=== PATIENT | female | born 1965 | race African-American/Black ===

== ENCOUNTER 2016-06-14 15:16 | Emergency (ER) | payer MEDICAID, OTHER ==
[2016-06-14 15:45] LABS: Bilirubin Negative (Negative); Blood, Urine Trace (Negative); Clarity Clear (Clear); Glucose, Urine (Dipstick) Negative (Negative); Leukocyte Trace (Negative); Nitrite Negative (Negative); Protein, Urine (Dipstick) Negative (Neg-Trace); Urobilinogen 0.2 mg/dL (0.2-1.0)
[2016-06-14 15:54] LABS: Bacteria/HPF Rare-Few HPF (None Seen); RBC/HPF 0-3 HPF (0-3); WBC/HPF 0-3 HPF (0-3)
== END 2016-06-14 16:15 | disposition home or self-care (01) ==
LOC: MADERS 15:16
DX: R30.0 Dysuria (principal); I10 Essential (primary) hypertension; E78.5 Hyperlipidemia, unspecified; E78.00 Pure hypercholesterolemia, unspecified; J45.909 Unspecified asthma, uncomplicated; Z87.891 Personal history of nicotine dependence
CPT/HCPCS: 81003; 81015; 87077; 87086; 99283

== ENCOUNTER 2016-08-06 11:23 | Emergency (ER) | payer OTHER ==
[2016-08-06] MEDS ORDERED: HYDROcodone/Acetaminophen 10/325 mg Tablet ONE (12:55)
[2016-08-06] MEDS ORDERED: Naproxen 500 MG TAB ONE (12:55)
[2016-08-06] MEDS ORDERED: AMOXicillin 250 MG CAP ONE (12:55)
[2016-08-06] MEDS ORDERED: Benzonatate 100 MG CAP ONE (12:55)
== END 2016-08-06 13:11 | disposition home or self-care (01) ==
LOC: MADERS 11:23
DX: J20.9 Acute bronchitis, unspecified (principal); M77.9 Enthesopathy, unspecified; I10 Essential (primary) hypertension; J45.909 Unspecified asthma, uncomplicated; E78.5 Hyperlipidemia, unspecified; E78.00 Pure hypercholesterolemia, unspecified; Z87.891 Personal history of nicotine dependence; Z79.899 Other long term (current) drug therapy
CPT/HCPCS: 99283

== ENCOUNTER 2017-03-11 17:55 | Emergency (ER) | payer OTHER ==
[2017-03-11 18:58] LABS: ALT (SGPT) 12 U/L (8-55); AST (SGOT) 14 U/L (5-34); Albumin 3.6 g/dL (3.5-5.0); Alkaline Phosphatase 65 U/L (40-150); Anion Gap 14 mmol/L (10-20); BUN (Urea Nitrogen) 14 mg/dL (7.0-18.7); Bilirubin, Total Less than 0.3 mg/dL (0.2-1.2); CK (CPK) 139 U/L (29-168); Calc. Creatinine Clearance 0 mL/min (70-130); Calcium 9.3 mg/dL (7.8-10.44); Carbon Dioxide 26 mmol/L (22-29); Chloride 101 mmol/L (98-107); Estimated GFR-MDRD 84; Globulin 5.2 g/dL (2.4-3.5); Glucose 93 mg/dL (70-105); Potassium 3.8 mmol/L (3.5-5.1); Protein, Total 8.8 g/dL (6.0-8.3); Sodium 137 mmol/L (136-145)
[2017-03-11 19:02] LABS: Eosinophils 2 % (0-10); Hemoglobin 9.6 g/dL (12.0-16.0); Lymphocytes 23 % (21-51); MDiff Complete? YES; Mean Corpuscular HGB CONC 31.7 g/dL (32.0-36.0); Mean Corpuscular Hemoglobin 25.4 pg (27.0-31.0); Mean Platelet Volume 7.6 fL (7.4-10.4); Monocytes 5 % (0-10); Neutrophil 70 % (42-75); PLT Morphology Comment Appears Adequate; Platelet Count 307 thou/uL (130-400); RBC Distribution Width 15.5 % (11.5-14.5); Red Blood Cell (RBC) Count 3.78 mill/uL (4.20-5.40)
== END 2017-03-11 19:38 | disposition home or self-care (01) ==
LOC: MADERS 17:55
DX: D50.9 Iron deficiency anemia, unspecified (principal); E78.5 Hyperlipidemia, unspecified; I10 Essential (primary) hypertension; J45.909 Unspecified asthma, uncomplicated; F17.210 Nicotine dependence, cigarettes, uncomplicated; Z79.899 Other long term (current) drug therapy
CPT/HCPCS: 36415; 80053; 82550; 85025; 99283

== ENCOUNTER 2017-04-08 09:33 | Outpatient (CLI) | payer OTHER ==
--- NOTE | 2017-04-08 11:36 | RAD ---
THREE VIEWS OF THE LEFT WRIST: INDICATION: Pain and swelling. COMPARISON: None. FINDINGS: There is soft tissue swelling surrounding the left wrist. No definite acute fracture or subluxation is grossly evident. There is slight widening of the scapholunate interval which can be seen with sca pholunate insufficiency. IMPRESSION: 1. No acute osseous abnormality. 2. Soft tissue swelling of the left wrist. 3. Slight widening of the scapholunate interval can be seen with scapholunate insufficiency. A foll owup left wrist MRI, preferably with intraarticular contrast is recommended for further evaluation. POS: [facility]
--- NOTE | 2017-04-08 11:47 | RAD ---
2 VIEW LEFT FOREARM: Date: 04/08/17 INDICATION: Pain, edema. FINDINGS: There is no fracture or dislocation of left forearm. No radiopaque foreign body is visualized. IMPRESSION: No acute osseous abnormality of left forearm. POS: [facility]
== END 2017-04-08 09:34 | disposition home or self-care (01) ==
LOC: MADRAD 09:33
PROVIDERS: ATTEND Family Medicine
DX: M79.632 Pain in left forearm (principal); M25.432 Effusion, left wrist

== ENCOUNTER 2017-09-20 21:07 | Emergency (ER) | payer OTHER ==
[2017-09-20] MEDS ORDERED: Fentanyl 100 MCG/2 ML VIAL ONE (21:31)
== END 2017-09-20 21:53 | disposition home or self-care (01) ==
LOC: MADERS 21:07
DX: M62.838 Other muscle spasm (principal); E78.5 Hyperlipidemia, unspecified; I10 Essential (primary) hypertension; J45.909 Unspecified asthma, uncomplicated; F32.9 Major depressive disorder, single episode, unspecified; Z87.891 Personal history of nicotine dependence; Z79.899 Other long term (current) drug therapy
CPT/HCPCS: 96372; J3010

== ENCOUNTER 2018-06-26 17:52 | Emergency (ER) | payer OTHER ==
[2018-06-26] MEDS ORDERED: predniSONE 20 MG TAB ONE (18:49)
== END 2018-06-26 18:52 | disposition home or self-care (01) ==
LOC: MADERS 17:52
DX: M19.90 Unspecified osteoarthritis, unspecified site (principal); E78.5 Hyperlipidemia, unspecified; I10 Essential (primary) hypertension; J45.909 Unspecified asthma, uncomplicated; F32.9 Major depressive disorder, single episode, unspecified; Z87.891 Personal history of nicotine dependence; Z79.51 Long term (current) use of inhaled steroids; Z79.899 Other long term (current) drug therapy
CPT/HCPCS: 99283

== ENCOUNTER 2019-07-01 15:21 | Emergency (ER) | payer OTHER ==
[2019-07-01] MEDS ORDERED: Aspirin Chewable 81 MG TAB ONE (15:44)
--- NOTE | 2019-07-01 15:51 | RAD ---
Portable chest: HISTORY: Chest pain COMPARISON: 2016 FINDINGS: Lung rocha are clear. Heart and mediastinum appear unremarkable. Vascularity is normal. Visualized osseous structures unremarkable. IMPRESSION: No acute finding
[2019-07-01 15:53] LABS: #Basophils 0.1 thou/uL (0.0-0.2); #Eosinphils 0.2 thou/uL (0.0-0.7); #Lymphocytes 2.7 thou/uL (1.20-3.40); #Monocytes 0.3 thou/uL (0.11-0.59); #Neutrophils 3.3 thou/uL (1.40-6.50); %Basophils 1.3 % (0.0-1.0); %Eosinophils 2.6 % (0.0-10.0); %Lymphocytes 41.2 % (21.0-51.0); %Monocytes 4.9 % (0.0-10.0); %Neutrophils 49.9 % (42.0-75.0); Hemoglobin 11.2 g/dL (12.0-16.0); Mean Corpuscular HGB CONC 30.4 g/dL (32.0-36.0); Mean Corpuscular Hemoglobin 26.4 pg (27.0-31.0); Mean Corpuscular Volume 86.8 fL (78.0-98.0); Mean Platelet Volume 8.7 fL (7.4-10.4); Platelet Count 284 thou/uL (130-400); RBC Distribution Width 12.2 % (11.5-14.5); Red Blood Cell (RBC) Count 4.24 mill/uL (4.20-5.40); White Blood Cell (WBC) Count 6.6 thou/uL (4.8-10.8)
[2019-07-01 16:07] LABS: ALT (SGPT) 18 U/L (8-55); AST (SGOT) 26 U/L (5-34); Albumin 4.2 g/dL (3.5-5.0); Alkaline Phosphatase 74 U/L (40-110); Anion Gap 15 mmol/L (10-20); BUN (Urea Nitrogen) 12 mg/dL (9.8-20.1); Bilirubin, Total 0.2 mg/dL (0.2-1.2); Calc. Creatinine Clearance 0 mL/min (70-130); Calcium 9.6 mg/dL (7.8-10.44); Carbon Dioxide 24 mmol/L (22-29); Chloride 104 mmol/L (98-107); Estimated GFR-MDRD 88; Globulin 5.4 g/dL (2.4-3.5); Glucose 82 mg/dL (70-105); Potassium 3.4 mmol/L (3.5-5.1); Protein, Total 9.6 g/dL (6.0-8.3); Sodium 140 mmol/L (136-145)
== END 2019-07-01 19:40 | disposition home or self-care (01) ==
LOC: MADERS 15:21
DX: R07.9 Chest pain, unspecified (principal); I10 Essential (primary) hypertension; J45.909 Unspecified asthma, uncomplicated; F32.9 Major depressive disorder, single episode, unspecified; Z87.891 Personal history of nicotine dependence; Z79.51 Long term (current) use of inhaled steroids; Z79.899 Other long term (current) drug therapy
CPT/HCPCS: 36415; 71045; 80053; 84484; 85025; 93005

== ENCOUNTER 2020-11-21 17:20 | Emergency (ER) | payer OTHER ==
[2020-11-21 18:06] LABS: Bilirubin Negative (Negative); Blood, Urine Trace (Negative); Glucose, Urine (Dipstick) Negative (Negative); Ketone, Urine Negative (Negative); Leukocyte Trace (Negative); Nitrite Negative (Negative); Protein, Urine (Dipstick) Negative (Neg-Trace); Specific Gravity, Urine 1.015 (1.005-1.030); Urobilinogen 0.2 mg/dL (Less than 2); pH, Urine 5.5 (5.0-9.0)
[2020-11-21 18:09] LABS: Clarity Hazy (Clear)
[2020-11-21 18:11] LABS: Bacteria/HPF 1+ HPF (None Seen); RBC/HPF 0-3 HPF (0-3); WBC/HPF 0-3 HPF (0-3)
[2020-11-21] MEDS ORDERED: Cephalexin 500 MG CAP ONE (18:59)
[2020-11-21 20:28] LABS: #Basophils 0.1 thou/uL (0.0-0.2); #Eosinphils 0.2 thou/uL (0.0-0.7); #Lymphocytes 2.5 thou/uL (1.20-3.40); #Monocytes 0.5 thou/uL (0.11-0.59); #Neutrophils 4.3 thou/uL (1.40-6.50); %Basophils 1.4 % (0.0-1.0); %Eosinophils 2.9 % (0.0-10.0); %Lymphocytes 32.4 % (21.0-51.0); %Monocytes 6.9 % (0.0-10.0); %Neutrophils 56.5 % (42.0-75.0); Hemoglobin 11.2 g/dL (12.0-16.0); Mean Corpuscular Hemoglobin 26.6 pg (27.0-31.0); Mean Corpuscular Volume 85.7 fL (78.0-98.0); Mean Platelet Volume 8.2 fL (7.4-10.4); Platelet Count 291 thou/uL (130-400); White Blood Cell (WBC) Count 7.6 thou/uL (4.8-10.8)
[2020-11-21 20:50] LABS: ALT (SGPT) 17 U/L (8-55); AST (SGOT) 18 U/L (5-34); Albumin 3.9 g/dL (3.5-5.0); Alkaline Phosphatase 64 U/L (40-110); Anion Gap 13 mmol/L (10-20); BUN (Urea Nitrogen) 11 mg/dL (9.8-20.1); Bilirubin, Total 0.2 mg/dL (0.2-1.2); Calc. Creatinine Clearance 0 mL/min (70-130); Calcium 9.9 mg/dL (7.8-10.44); Carbon Dioxide 29 mmol/L (22-29); Chloride 100 mmol/L (98-107); Globulin 6.1 g/dL (2.4-3.5); Glucose 87 mg/dL (70-105); Potassium 3.7 mmol/L (3.5-5.1); Sodium 138 mmol/L (136-145)
[2020-11-21] MEDS ORDERED: cefTRIAXone\\ROCEPHIN 2 GM VIAL ONE (22:03)
[2020-11-21] MEDS ORDERED: Sodium Chloride 0.9% 100 ML ONE (22:03)
[2020-11-21] MEDS ORDERED: Sodium Chloride 0.9% 250 ML 250 ML ONE (22:57)
== END 2020-11-21 23:09 | disposition short-term general hospital (02) ==
LOC: MADERS 17:20
DX: M54.5 Low back pain (principal); R30.0 Dysuria; L73.2 Hidradenitis suppurativa; D84.89 Other immunodeficiencies; I10 Essential (primary) hypertension; E78.5 Hyperlipidemia, unspecified; E78.00 Pure hypercholesterolemia, unspecified; Z87.891 Personal history of nicotine dependence; Z79.899 Other long term (current) drug therapy
CPT/HCPCS: 36415; 80053; 81003; 81015; 83605; 85025; 86140; 87040; 87086; 96365; 96375; J0696; J3370; J3490; J7050

== ENCOUNTER 2021-05-01 08:50 | Emergency (ER) | payer OTHER ==
[2021-05-01] MEDS ORDERED: Acetaminophen 500 MG TAB ONE (09:40)
== END 2021-05-01 10:50 | disposition home or self-care (01) ==
LOC: MADERS 08:50
DX: S33.5XXA Sprain of ligaments of lumbar spine, initial encounter (principal); V49.50XA Passenger injured in collision with unspecified motor vehicles in traffic accident, initial encounter; I10 Essential (primary) hypertension; E78.5 Hyperlipidemia, unspecified; E78.00 Pure hypercholesterolemia, unspecified; J45.909 Unspecified asthma, uncomplicated; F17.210 Nicotine dependence, cigarettes, uncomplicated
CPT/HCPCS: 72131

== ENCOUNTER 2021-12-18 10:09 | Outpatient (CLI) | payer OTHER ==
[2021-12-18 10:52] LABS: Anion Gap 12 mmol/L (10-20); BUN (Urea Nitrogen) 17 mg/dL (9.8-20.1); Calc. Creatinine Clearance 0 mL/min (70-130); Calcium 10.2 mg/dL (7.8-10.44); Carbon Dioxide 29 mmol/L (22-29); Chloride 99 mmol/L (98-107); Estimated GFR 64; Glucose 94 mg/dL (70-105); Potassium 4.3 mmol/L (3.5-5.1); Sodium 136 mmol/L (136-145)
[2021-12-18 11:24] LABS: #Basophils 0.1 thou/uL (0.0-0.2); #Eosinphils 0.1 thou/uL (0.0-0.7); #Lymphocytes 2.4 thou/uL (1.20-3.40); #Monocytes 0.6 thou/uL (0.11-0.59); #Neutrophils 4.9 thou/uL (1.40-6.50); %Basophils 0.9 % (0.0-1.0); %Eosinophils 1.5 % (0.0-10.0); %Lymphocytes 29.6 % (21.0-51.0); %Monocytes 7.4 % (0.0-10.0); %Neutrophils 60.6 % (42.0-75.0); Anisocytosis SLIGHT = 6-15 cells (100X) (0-5/hpf); Hemoglobin 11.1 g/dL (12.0-16.0); Hypochromia SLIGHT = 6-15 cells (100X) (0-5/hpf); MDiff Complete? YES; Mean Corpuscular HGB CONC 29.7 g/dL (32.0-36.0); Mean Corpuscular Hemoglobin 25.5 pg (27.0-31.0); Mean Platelet Volume 9.3 fL (7.4-10.4); Platelet Count 280 thou/uL (130-400); Platelet Morphology Comment Appears Adequate; RBC Distribution Width 13.9 % (11.5-14.5); Red Blood Cell (RBC) Count 4.35 mill/uL (4.20-5.40); White Blood Cell (WBC) Count 8.1 thou/uL (4.8-10.8)
== END 2021-12-18 10:10 | disposition home or self-care (01) ==
LOC: MADLABBHPM 10:09 → MADLAB 10:10
PROVIDERS: ATTEND Family Medicine
DX: R53.83 Other fatigue (principal)
CPT/HCPCS: 80048; 84443; 85025

== ENCOUNTER 2022-12-10 08:31 | Outpatient (CLI) | payer OTHER | END 2022-12-10 08:32 | disposition home or self-care (01) | LOC: MADRAD 08:31 | PROVIDERS: ATTEND Specialist | DX: M51.16 Intervertebral disc disorders with radiculopathy, lumbar region (principal); M43.16 Spondylolisthesis, lumbar region; M47.816 Spondylosis without myelopathy or radiculopathy, lumbar region | CPT/HCPCS: 72100 ==

== ENCOUNTER 2023-02-16 14:54 | Outpatient (CLI) | payer OTHER | END 2023-02-16 14:55 | disposition home or self-care (01) | LOC: MADRAD 14:54 | PROVIDERS: ATTEND Internal Medicine | DX: J34.9 Unspecified disorder of nose and nasal sinuses (principal) | CPT/HCPCS: 70220 ==

== ENCOUNTER 2023-03-02 12:45 | Emergency (ER) | payer OTHER ==
[2023-03-02] MEDS ORDERED: Tetracaine 0.5% PF 4 ML BOT ONE (13:07)
[2023-03-02] MEDS ORDERED: Fluorescein Opthalmic Strip ONE (13:07)
[2023-03-02] MEDS ORDERED: Acetaminophen 500 MG TAB ONE (13:29)
[2023-03-02] MEDS ORDERED: Ibuprofen 800 MG TAB ONE (13:29)
== END 2023-03-02 13:36 | disposition home or self-care (01) ==
LOC: MADERS 12:45
DX: L03.213 Periorbital cellulitis (principal); J45.909 Unspecified asthma, uncomplicated; E78.00 Pure hypercholesterolemia, unspecified; I10 Essential (primary) hypertension; Z87.891 Personal history of nicotine dependence; Z79.899 Other long term (current) drug therapy
CPT/HCPCS: 99283

== ENCOUNTER 2024-05-18 11:33 | Emergency (ER) | payer OTHER ==
[2024-05-18] MEDS ORDERED: hydrOXYzine 25 MG TAB ONE (12:13)
== END 2024-05-18 12:54 | disposition home or self-care (01) ==
LOC: MADERS 11:33
DX: F41.0 Panic disorder [episodic paroxysmal anxiety] (principal); J45.909 Unspecified asthma, uncomplicated; Z87.891 Personal history of nicotine dependence; Z79.899 Other long term (current) drug therapy
CPT/HCPCS: 99283